=== PATIENT | female | born 1945 | race Caucasian/White ===

== ENCOUNTER 2020-05-21 09:47 | Inpatient (IN) | payer MEDICARE ==
[~2020-05-21] VITALS: Ht 165.1 cm; Wt 38.6 kg
--- NOTE | 2020-05-21 09:47 | NUR ---
PT BIB SELF C/O ANXIETY FOR [address] AVENDAÑO FOR FURTHER EVAL. PT IS AAOX4, NOT IN RESPIRATORY DISTRESS, HOOKED TO STAMP PRESS OPERATOR, KEPT RESTED AND COMFORTABLE. WILL CONTINUE TO MONITOR.
--- NOTE | 2020-05-21 10:00 | NUR ---
URINE SPECIMEN COLLECTED AND SENT TO LAB.
--- NOTE | 2020-05-21 10:05 | NUR ---
SEEN AND EXAMINED BY .
[2020-05-21] MEDS ORDERED: LORAZEPAM INJ 2 MG/ML VIAL ONE (10:07)
[2020-05-21] MEDS ORDERED: AMLO5TAB9 PO (10:16)
[2020-05-21] MEDS ORDERED: OLAN5TAB3 PO (10:16)
[2020-05-21] MEDS ORDERED: TRAZ-257 PO (10:16)
[2020-05-21] MEDS ORDERED: LEVO112T7 PO (10:16)
[2020-05-21] MEDS ORDERED: VENL75TA4 PO (10:16)
[2020-05-21] MEDS ORDERED: TRAM50TA2 PO (10:16)
[2020-05-21] MEDS ORDERED: MIRT15TA7 PO (10:16)
[2020-05-21] MEDS ORDERED: BENA20TA9 PO (10:16)
[2020-05-21] MEDS ORDERED: PHEN100C12 PO (10:16)
--- NOTE | 2020-05-21 10:20 | NUR ---
IV LINE ESTABLISHED BLOOD DRAWN AND SENT TO LAB.
--- NOTE | 2020-05-21 10:22 | NUR ---
SALES AND MARKETING DIRECTOR AT BEDSIDE FOR XRAY.
[2020-05-21 10:24] LABS: BASOPHILS # (AUTO) 0.1 /CMM (0.0-0.2); EOSINOPHILS % (AUTO) 0.3 % (0.0-6.0); HEMATOCRIT 50 % (33-45); HEMOGLOBIN 16.6 g/dL (11.5-14.8); LYMPHOCYTES # (AUTO) 1.3 /CMM (0.8-4.8); MEAN CORPUSCULAR HGB CONC 34 g/dl (31.0-36.0); MEAN CORPUSCULAR VOLUME 98 fL (82-100); MONOCYTES # (AUTO) 0.6 /CMM (0.1-1.30); MONOCYTES % (AUTO) 7.6 % (2.0-12.0); NEUTROPHILS # (AUTO) 5.3 /CMM (1.8-8.9); NEUTROPHILS % (AUTO) 73.1 % (43.0-81.0); PLATELET COUNT (AUTO) 307 /CMM (150-450); RED BLOOD CELL COUNT(AUTO) 5.04 MIL/uL (4.0-5.2); WHITE BLOOD COUNT (AUTO) 7.3 K/uL (4.3-11.0)
[2020-05-21] MEDS ORDERED: LORAZEPAM INJ 2 MG/ML VIAL IV ONE (10:30)
[2020-05-21] MEDS ORDERED: IV NS 0.9% 500 ML BAG IV ONE (10:30)
[2020-05-21 10:31] LABS: CALCIUM, SERUM 8.9 mg/dL (8.5-10.1); CARBON DIOXIDE 30 mmol/L (21-32); CHLORIDE 101 mmol/L (98-107); GLUCOSE 131 mg/dL (74-106); POTASSIUM 3.2 mmol/L (3.5-5.1); SODIUM SERUM 140 mmol/L (136-145); UREA NITROGEN, BLOOD 6 mg/dL (7-18)
[2020-05-21 10:44] LABS: ALANINE AMINOTRANSFERASE 23 U/L (12-78); ALBUMIN 4.3 g/dL (3.4-5.0); ALKALINE PHOSPHATASE 91 U/L (46-116); ASPARTATE AMINOTRANSFERASE 13 U/L (15-37); B-TYPE NATRIURETIC PEPTIDE 286 PG/ML (0-125); BILIRUBIN,DIRECT 0.1 mg/dL (0.0-0.2); BILIRUBIN,TOTAL 0.3 mg/dL (0.2-1.0); TOTAL PROTEIN, SERUM 7.7 g/dL (6.4-8.2)
[2020-05-21 10:50] LABS: THYROID STIMULATING HORMONE 3.519 uIU/mL (0.358-3.74)
--- NOTE | 2020-05-21 10:56 | NUR ---
MOVE SHEET SUBMITTED AND CALLED FOR GPS BED.
--- NOTE | 2020-05-21 11:10 | NUR ---
COVID SPECIMEN OBTAINED AND SENT TO LAB
[2020-05-21 12:00] LABS: APPEARANCE,URINE Clear (CLEAR); BILIRUBIN,URINE Negative (NEGATIVE); BLOOD, URINE Trace-lysed Ery/uL (NEGATIVE); COLOR,URINE Yellow (YELLOW); KETONES,URINE Negative (NEGATIVE); LEUKOCYTE ESTERASE ,URINE Negative (NEGATIVE); NITRITE, URINE Negative (NEGATIVE); PH,URINE 6.5 (5.0-8.0); PROTEIN,URINE Negative (NEGATIVE); UGLUCOSE Negative (NEGATIVE); UROBILINOGEN,URINE 0.2 EU/dL (0.2)
[2020-05-21 12:20] LABS: BACTERIA,URINE None seen /HPF (None Seen); SQUAMOUS EPITHELIAL CELL,UR Few /HPF (None Seen); WBC,URINE 0-2 /HPF (0-3)
--- NOTE | 2020-05-21 12:30 | NUR ---
ANA NORRIS DNP AT BEDSIDE FOR EVAL.
[2020-05-21] MEDS ORDERED: POTASSIUM CHLORIDE 20 MEQ TAB.PRT.SR PO ONE ×2 (12:59→13:00)
--- NOTE | 2020-05-21 14:09 | NUR ---
[facility] BED 215-1
--- NOTE | 2020-05-21 14:20 | NUR ---
REPORT GIVEN TO CAROLINE TORRES FOR JYOTI.
--- NOTE | 2020-05-21 14:50 | NUR ---
EMAIL OPERATIONS MANAGER NOTE: PATIENT IS A 74 YEAR OLD FEMALE BROUGHT INTO THE HOSPITAL INDEPENDENTLY . PT ADMITTED ON A VOLUNTARY BASIS FROM HOME. PATIENT ADMITTED DUE TO INCREASED ANXIETY OVER THE PAST 3 MONTHS CAUSING PT TO BE UNABLE TO PERFORM BASIC ADLS AND ADEQUATE PO INTAKE. PT WITH DECREASED APPETITE AND WEIGHT LOSS OF 13 POUNDS IN 2 MONTHS. PT HAS A HISTORY OF ANXIETY, DEPRESSION, HTN AND COPD. PT STATES SHE HAS BEEN COMPLIANT WITH HER MEDICATIONS AND SWITCHED FROM XANAX TO ATIVAN AFTER 5 YEARS DUE TO XANAX "NOT WORKING ANYMORE" . PT DENIES CURRENT SI/HI. DENIES HISTORY OF SUICIDALITY. UPON FACE TO FACE, PT A+OX3, ABLE TO MAKE NEEDS KNOWN. PT AMBULATORY WITH STEADY GAIT. INDEPENDENT WITH ADLS AND INTAKE. PT RESPONDS ADEQUATELY TO QUESTIONS AND EDUCATION. SPEECH IS CLEAR. SHORT ATTENTION SPAN DUE TO ANXIETY. PT IS DISHEVELED AND UNKEPT. PT DENIES AH/VH. PT ORIENTED TO THE UNIT AND PATIENT'S RIGHT AND GUIDE TO PRESCRIPTIONS GIVEN. PT IS A FULL CODE WITH STABLE VITAL SIGNS. NKA.
[2020-05-21] MEDS ORDERED: MAG HYDROX/AL HYDROX/SIMETH 30 ML UDC PO PRN (15:30)
[2020-05-21] MEDS ORDERED: MAGNESIUM HYDROXIDE 30 ML UDC PO PRN (15:30)
[2020-05-21] MEDS ORDERED: BLOOD SUGAR DIAGNOSTIC 1 EACH STRIP IN ONE (15:30)
[2020-05-21] MEDS ORDERED: TEMAZEPAM 7.5 MG CAPSULE PO PRN (15:30)
[2020-05-21 16:00] VITALS: BP 158/86
[2020-05-21] MEDS: LORAZEPAM 0.5 MG TABLET PO SCH (17:31)
[2020-05-21 19:47] VITALS: BP 140/77
--- NOTE | 2020-05-21 20:10 | NUR ---
GPS-RN NOTE: SPOKE WITH DR. LATIF NOTIFIED OF MEDICATION RECONCILIATION NEEDS TO BE DONE.
[2020-05-21] MEDS: VENLAFAXINE 37.5 MG TABLET PO SCH (20:51)
[2020-05-21] MEDS: MIRTAZAPINE 15 MG TABLET PO SCH (21:17)
[2020-05-21] MEDS: TRAZODONE 50 MG TABLET PO SCH (21:17)
[2020-05-21] MEDS: OLANZAPINE 10 MG TABLET PO SCH (21:18)
[2020-05-22 08:00] VITALS: BP 142/72
[2020-05-22] MEDS: VENLAFAXINE 37.5 MG TABLET PO SCH ×2 (08:26→16:29)
[2020-05-22] MEDS: LORAZEPAM 0.5 MG TABLET PO SCH ×3 (08:27→16:29)
[2020-05-22] MEDS: Z GUARD REMEDY 2 OZ OINT TP SCH ×3 (08:36→16:31)
[2020-05-22 08:40] LABS: ALBUMIN 3.4 g/dL (3.4-5.0); BILIRUBIN,TOTAL 0.4 mg/dL (0.2-1.0); CALCIUM, SERUM 8.3 mg/dL (8.5-10.1); CREATININE 0.9 mg/dL (0.6-1.3); POTASSIUM 4.4 mmol/L (3.5-5.1); TOTAL PROTEIN, SERUM 6.2 g/dL (6.4-8.2)
[2020-05-22 09:19] LABS: PHENYTOIN (DILANTIN) 1.2 ug/ml (10.0-20.0)
[2020-05-22] MEDS: LEVOTHYROXINE SODIUM 112 MCG TABLET PO SCH (09:56)
[2020-05-22] MEDS: BENAZEPRIL HCL 20 MG TABLET PO SCH ×2 (09:56→16:29)
[2020-05-22] MEDS: PHENYTOIN EXTENDED RELEASE 100 MG CAPSULE PO SCH ×2 (09:56→16:29)
[2020-05-22] MEDS: AMLODIPINE BESYLATE 5 MG TABLET PO SCH (09:57)
--- NOTE | 2020-05-22 13:55 | NUR ---
INITIAL DISCHARGE PLAN: [place] [id number] [place] [address]. SW will help from a safe and proper discharge in collaboration with .
[2020-05-22] MEDS: TRAMADOL HCL 50 MG TABLET PO PRN (13:59)
--- NOTE | 2020-05-22 15:10 | NUR ---
INDIVIDUAL INTERVENTION: SW encouraged pt to attend group milieu. Pt refused stating, "I'd rather chill in my bed."
[2020-05-22 16:00] VITALS: BP 113/63
[2020-05-22] MEDS: ENSURE ENLIVE 237 ML LIQUID (VANILLA) PO SCH (16:30)
[2020-05-22 19:35] VITALS: BP 120/54
--- NOTE | 2020-05-22 19:56 | NUR ---
GPS RN NOTE: PT TRANSFERRED PT [facility]SFERRED TO [facility], ROOM 120-1, REPORT GIVEN TO ELY VELAZQUEZ @ 1950, PT TRANSFERRED DOWN AT @1955.
--- NOTE | 2020-05-22 20:10 | NUR ---
RN NOTES Received patient from GPS, via wheelchair accompanied by 1 GPS staff. Transferred patient to bed comfortably. Instructed patient on the importance of using call light. On fall and aspiration precautions. Contraband kept on the safe. Kept pt on bed clean, dry and comfortable. Will continue to monitor accordingly.
[2020-05-22] MEDS: TRAZODONE 50 MG TABLET PO SCH (21:01)
[2020-05-22] MEDS: MIRTAZAPINE 15 MG TABLET PO SCH (21:01)
[2020-05-22] MEDS: OLANZAPINE 10 MG TABLET PO SCH (21:02)
--- NOTE | 2020-05-22 22:21 | NUR ---
RN NOTES Pt's belongings inventory updated. Everything accounted for. Pt's cellphone and self rising flour mixer at nursing fish hatchery supervisor's safe per GPS Charge Nurse Saumya.
--- NOTE | 2020-05-23 06:58 | NUR ---
RN CLOSING NOTES Pt asleep on bed. No new complaints made. Pt denies SI. All nursing needs attended, due meds given as ordered. Kept on bed clean, dry and comfortable. On fall precautions. Endorsed.
--- NOTE | 2020-05-23 08:00 | NUR ---
GPS RN OPENING NOTES Received Patient resting in bed. A/O x 3. Denies SI/HI. VS stable with no acute distress. Breathing even and unlabored on room air with no respiratory distress. Denies pain. No signs and symptoms of pain. No IV access. MD aware. Safety precautions in place. Bed locked and set to lowest position with side rails x 2 up. All needs rendered at this time. Call light within reach. Will continue to monitor.
[2020-05-23] MEDS: PHENYTOIN EXTENDED RELEASE 100 MG CAPSULE PO SCH ×2 (08:38→18:14)
[2020-05-23] MEDS: BENAZEPRIL HCL 20 MG TABLET PO SCH ×2 (08:38→18:14)
[2020-05-23] MEDS: LORAZEPAM 0.5 MG TABLET PO SCH ×3 (08:38→18:14)
[2020-05-23] MEDS: LEVOTHYROXINE SODIUM 112 MCG TABLET PO SCH (08:39)
[2020-05-23] MEDS: AMLODIPINE BESYLATE 5 MG TABLET PO SCH (08:39)
[2020-05-23] MEDS: Z GUARD REMEDY 2 OZ OINT TP SCH ×3 (08:42→17:43)
[2020-05-23] MEDS: ENSURE ENLIVE 237 ML LIQUID (VANILLA) PO SCH ×2 (09:18→17:42)
[2020-05-23] MEDS: VENLAFAXINE 37.5 MG TABLET PO SCH ×2 (10:41→18:41)
--- NOTE | 2020-05-23 10:43 | NUR ---
WOUND CARE CONSULT: PT REFUSED SKIN ASSESSMENT BUT STATES SHE HAD PREVIOUSLY RUBBED HER BUTTOCKS AT HOME AFTER SITTING IN HER PATIO. PT IS AMBULATORY AND CONTINENT WITH CURRENT MIC SCORE OF 19. WILL SEE PRN.
--- NOTE | 2020-05-23 18:50 | NUR ---
GPS RN NOTES Returned phone and keys to Patient at this time.
--- NOTE | 2020-05-23 19:20 | NUR ---
rn gps notes received patient in bed awake alert and oriented, x3, respirations even and unlabored with equal rise and fall of chest, denies any pain or discomfort, denies si or hi at this time, oriented to staff and call light and kept within reach safety precautions rendered low bed and locked, bed alarm in place, all needs attended at this time, frequent checks rendered and continued, all needs attended remains comfortable will continue to monitor and attend to needs.
--- NOTE | 2020-05-23 19:53 | NUR ---
GPS RN CLOSING NOTES Patient resting in bed. A/O x 3. Denies SI/HI. VS stable with no acute distress. Breathing even and unlabored on room air with no respiratory distress. Denies pain. No signs and symptoms of pain. No IV access. MD aware. Safety precautions in place. Bed locked and set to lowest position with side rails x 2 up. All needs rendered at this time. Call light within reach. Will endorse plan of care to oncoming shift.
[2020-05-23 20:00] VITALS: BP 110/58
[2020-05-23] MEDS: TRAZODONE 50 MG TABLET PO SCH (21:09)
[2020-05-23] MEDS: MIRTAZAPINE 15 MG TABLET PO SCH (21:10)
[2020-05-23] MEDS: OLANZAPINE 10 MG TABLET PO SCH (21:10)
[2020-05-24 04:00] VITALS: BP 116/55
--- NOTE | 2020-05-24 06:19 | NUR ---
rn gps closing notes patient in bed sleeping easily arousable, alert and oriented x3, respirations even and unlabored with equal rise and fall of chest, denies any pain or discomfort, denies si or hi at this time, call light kept within reach safety precautions rendered low bed and locked, bed alarm in place, all needs attended at this time, frequent checks rendered and continued throughout shift, med complaint, slept well, all needs attended remains comfortable will continue to monitor and attend to needs and endorse to next shift.
--- NOTE | 2020-05-24 07:30 | NUR ---
REPORT RECEIVED FROM CAROLINE NUNES
[2020-05-24] MEDS: BENAZEPRIL HCL 20 MG TABLET PO SCH ×2 (08:18→16:35)
[2020-05-24] MEDS: LORAZEPAM 0.5 MG TABLET PO SCH ×3 (08:19→16:35)
[2020-05-24] MEDS: LEVOTHYROXINE SODIUM 112 MCG TABLET PO SCH (08:19)
[2020-05-24] MEDS: PHENYTOIN EXTENDED RELEASE 100 MG CAPSULE PO SCH ×2 (08:19→16:35)
[2020-05-24] MEDS: AMLODIPINE BESYLATE 5 MG TABLET PO SCH (08:19)
[2020-05-24] MEDS: VENLAFAXINE 37.5 MG TABLET PO SCH ×2 (08:19→16:34)
[2020-05-24] MEDS: Z GUARD REMEDY 2 OZ OINT TP SCH ×3 (08:26→16:42)
[2020-05-24] MEDS: ENSURE ENLIVE 237 ML LIQUID (VANILLA) PO SCH ×2 (08:26→16:36)
--- NOTE | 2020-05-24 10:15 | NUR ---
RN NOTES RECEIVED PATIENT VIA WHEELCHAIR ACCOMPANIED BY CAROLINE MORA, NO SIGNS OF DISTRESS NOTED AT THIS TIME, REPORT RECEIVED FROM CAROLINE MORA BEDSIDE. WILL CONTINUE TO MONITOR.
--- NOTE | 2020-05-24 10:17 | NUR ---
PATIENT TRANSFERRED TO 219 ROOM
[2020-05-24 16:00] VITALS: BP 141/89
[2020-05-24] MEDS: ACETAMINOPHEN 325 MG TABLET PO PRN (16:59)
[2020-05-24 20:08] VITALS: BP 105/55
[2020-05-24] MEDS: TRAZODONE 50 MG TABLET PO SCH (21:26)
[2020-05-24] MEDS: MIRTAZAPINE 15 MG TABLET PO SCH (21:27)
[2020-05-24] MEDS: OLANZAPINE 10 MG TABLET PO SCH (21:28)
[2020-05-25 08:00] VITALS: BP 122/56
[2020-05-25] MEDS: LORAZEPAM 0.5 MG TABLET PO SCH ×3 (08:08→16:34)
[2020-05-25] MEDS: PHENYTOIN EXTENDED RELEASE 100 MG CAPSULE PO SCH ×2 (08:08→16:34)
[2020-05-25] MEDS: VENLAFAXINE 37.5 MG TABLET PO SCH ×2 (08:08→16:34)
[2020-05-25] MEDS: BENAZEPRIL HCL 20 MG TABLET PO SCH ×2 (08:09→16:34)
[2020-05-25] MEDS: AMLODIPINE BESYLATE 5 MG TABLET PO SCH (08:09)
[2020-05-25] MEDS: Z GUARD REMEDY 2 OZ OINT TP SCH ×3 (08:10→16:21)
[2020-05-25] MEDS: ENSURE ENLIVE 237 ML LIQUID (VANILLA) PO SCH ×2 (08:10→16:21)
[2020-05-25] MEDS: LEVOTHYROXINE SODIUM 112 MCG TABLET PO SCH (08:10)
--- NOTE | 2020-05-25 08:16 | NUR ---
GPS RN NOTES PATIENT WITH BORDERLINE DIASTOLIC BP 122/56. ONE OUT OF TWO BP MEDS GIVEN.
[2020-05-25] MEDS: ACETAMINOPHEN 325 MG TABLET PO PRN (09:53)
--- NOTE | 2020-05-25 13:35 | NUR ---
INDIVIDUAL INTERVENTION: SW met with pt to discuss her current symptoms of anxiety. Pt stated she was feeling much better today and was observed walking around the unit. Pt stated she has more energy today and states she feels the medication is helping. SW explored triggers and alternative ways of coping.
[2020-05-25] MEDS: TRAMADOL HCL 50 MG TABLET PO PRN (15:17)
[2020-05-25 16:00] VITALS: BP 127/76
--- NOTE | 2020-05-25 19:05 | NUR ---
GPS RN OPENING NOTES: RECEIVED PATIENT AWAKE AND IN BED,SITTING. NO S/S OF DISTRESS NOTED. NO COMPLAIN OF PAIN. PATIENT'S BREATHING IS UNLABORED. PATIENT IS ALERT AND ORIENTED X2.PATIENT DENIES SUICIDE IDEATIONS AND HOMICIDAL IDEATIONS AT THIS TIME. BED IN LOCKED AND LOW POSITION. PATIENT EDUCATED ON THE USE OF THE CALL DAILEY. BED SIDERAILS UP X2 FOR SAFETY. WILL CONTINUE TO MONITOR.
[2020-05-25 20:00] VITALS: BP 132/67
[2020-05-25 20:07] VITALS: BP 132/76
[2020-05-25] MEDS: TRAZODONE 50 MG TABLET PO SCH (21:10)
[2020-05-25] MEDS: OLANZAPINE 10 MG TABLET PO SCH (21:11)
[2020-05-25] MEDS: MIRTAZAPINE 15 MG TABLET PO SCH (21:11)
--- NOTE | 2020-05-25 21:17 | NUR ---
AMBULATORY WITH STEADY GAIT.
--- NOTE | 2020-05-25 21:17 | NUR ---
PATIENT COMPLIANT WITH MEDS.
--- NOTE | 2020-05-25 21:21 | NUR ---
PATIENT'S SACRAL AREA ASSESSED FOR REDNESS, NO REDNESS NOTED.
--- NOTE | 2020-05-26 06:19 | NUR ---
CLOSING NOTES: PATIENT IS AWAKE, JUST WENT TO THE BATHROOM,VOIDED. NO S/S OF DISTRESS NOTED. NO COMPLAIN OF PAIN AT THIS TIME. BED IN LOWEST AND LOCKED POSITION. PATIENT IS CALM AND HAPPY THIS MORNING.
[2020-05-26 08:00] VITALS: BP 135/74
[2020-05-26] MEDS: LORAZEPAM 0.5 MG TABLET PO SCH ×3 (08:03→17:30)
[2020-05-26] MEDS: PHENYTOIN EXTENDED RELEASE 100 MG CAPSULE PO SCH ×2 (08:03→17:30)
[2020-05-26] MEDS: VENLAFAXINE 37.5 MG TABLET PO SCH ×2 (08:03→17:30)
[2020-05-26] MEDS: LEVOTHYROXINE SODIUM 112 MCG TABLET PO SCH (08:03)
[2020-05-26] MEDS: AMLODIPINE BESYLATE 5 MG TABLET PO SCH (08:04)
[2020-05-26] MEDS: BENAZEPRIL HCL 20 MG TABLET PO SCH ×2 (08:04→17:31)
[2020-05-26] MEDS: ENSURE ENLIVE 237 ML LIQUID (VANILLA) PO SCH ×2 (08:05→17:24)
[2020-05-26] MEDS: Z GUARD REMEDY 2 OZ OINT TP SCH ×3 (08:07→17:24)
[2020-05-26] MEDS: TRAMADOL HCL 50 MG TABLET PO PRN (09:35)
[2020-05-26] MEDS: ACETAMINOPHEN 325 MG TABLET PO PRN (14:57)
[2020-05-26 16:00] VITALS: BP 127/62
[2020-05-26 20:10] VITALS: BP 134/61
[2020-05-26] MEDS: OLANZAPINE 10 MG TABLET PO SCH (22:14)
[2020-05-26] MEDS: MIRTAZAPINE 15 MG TABLET PO SCH (22:15)
[2020-05-26] MEDS: TRAZODONE 50 MG TABLET PO SCH (22:24)
--- NOTE | 2020-05-27 06:32 | NUR ---
GPS RN CLOSING NOTES: PT AWAKE, ALERT AND ORIENTED 3X. CALM AND COOPERATIVE, MEDICATION COMPLIANT. SLEPT FOR 8 HR THIS SHIFT. NO S/S OF DISTRESS. RESPIRATION EVEN AND UNLABORED WITH EQUAL RISE AND FALL OF THE SHIFT ON ROOM AIR. ALL PT NEEDS MET ANTICIPATED. WILL CONTINUE TO MONITOR AND ENDORSE TO AM SHIFT.
[2020-05-27] MEDS: PHENYTOIN EXTENDED RELEASE 100 MG CAPSULE PO SCH ×2 (07:55→17:09)
[2020-05-27] MEDS: LEVOTHYROXINE SODIUM 112 MCG TABLET PO SCH (07:55)
[2020-05-27] MEDS: LORAZEPAM 0.5 MG TABLET PO SCH ×3 (07:56→17:10)
[2020-05-27] MEDS: ENSURE ENLIVE 237 ML LIQUID (VANILLA) PO SCH ×2 (07:56→17:05)
[2020-05-27] MEDS: VENLAFAXINE 37.5 MG TABLET PO SCH ×2 (07:56→17:09)
[2020-05-27] MEDS: BENAZEPRIL HCL 20 MG TABLET PO SCH ×2 (07:57→17:09)
[2020-05-27] MEDS: AMLODIPINE BESYLATE 5 MG TABLET PO SCH (07:58)
[2020-05-27] MEDS: Z GUARD REMEDY 2 OZ OINT TP SCH ×3 (07:59→17:05)
[2020-05-27 08:00] VITALS: BP 145/74
[2020-05-27] MEDS: TRAMADOL HCL 50 MG TABLET PO PRN ×2 (10:28→16:52)
[2020-05-27] MEDS: ACETAMINOPHEN 325 MG TABLET PO PRN (13:21)
[2020-05-27 16:00] VITALS: BP 128/71
[2020-05-27 20:39] VITALS: BP 131/66
[2020-05-27] MEDS: TRAZODONE 50 MG TABLET PO SCH (21:19)
[2020-05-27] MEDS: OLANZAPINE 10 MG TABLET PO SCH (21:19)
[2020-05-27] MEDS: MIRTAZAPINE 15 MG TABLET PO SCH (21:19)
[2020-05-28] MEDS: TRAMADOL HCL 50 MG TABLET PO PRN ×2 (07:49→17:01)
[2020-05-28 08:00] VITALS: BP 138/70
[2020-05-28] MEDS: LORAZEPAM 0.5 MG TABLET PO SCH ×3 (08:20→16:36)
[2020-05-28] MEDS: LEVOTHYROXINE SODIUM 112 MCG TABLET PO SCH (08:20)
[2020-05-28] MEDS: VENLAFAXINE 37.5 MG TABLET PO SCH ×2 (08:20→16:36)
[2020-05-28] MEDS: PHENYTOIN EXTENDED RELEASE 100 MG CAPSULE PO SCH ×2 (08:20→16:36)
[2020-05-28] MEDS: Z GUARD REMEDY 2 OZ OINT TP SCH ×3 (08:21→16:37)
[2020-05-28] MEDS: ENSURE ENLIVE 237 ML LIQUID (VANILLA) PO SCH ×2 (08:21→16:37)
[2020-05-28] MEDS: BENAZEPRIL HCL 20 MG TABLET PO SCH ×2 (08:21→16:37)
[2020-05-28] MEDS: AMLODIPINE BESYLATE 5 MG TABLET PO SCH (08:21)
--- NOTE | 2020-05-28 09:00 | NUR ---
RN NOTE- PT W ANXIETY THOUGH DIMINISHED W ROUTINE ATIVAN ADMINISTRATION, STATED SI THOUGHTS PREVIOUSLY THOUGH NONE AT PRESENT. DENIES AH VH PO INTAKE FAIR VISIBLE ON UNIT SOME INTERACTION
[2020-05-28] MEDS: ACETAMINOPHEN 325 MG TABLET PO PRN (14:08)
--- NOTE | 2020-05-28 14:08 | NUR ---
RN NOTE- PT C/O BACK AND NECK PAIN. TYLENOL 650 MG GIVEN
[2020-05-28 16:00] VITALS: BP 116/63
[2020-05-28 19:45] VITALS: BP 104/63
[2020-05-28] MEDS: TRAZODONE 50 MG TABLET PO SCH (21:17)
[2020-05-28] MEDS: OLANZAPINE 10 MG TABLET PO SCH (21:17)
[2020-05-28] MEDS: MIRTAZAPINE 15 MG TABLET PO SCH (21:18)
[2020-05-29 08:00] VITALS: BP 142/70
[2020-05-29] MEDS: VENLAFAXINE 37.5 MG TABLET PO SCH ×2 (08:13→16:15)
[2020-05-29] MEDS: BENAZEPRIL HCL 20 MG TABLET PO SCH ×2 (08:14→16:20)
[2020-05-29] MEDS: LORAZEPAM 0.5 MG TABLET PO SCH ×3 (08:14→16:15)
[2020-05-29] MEDS: LEVOTHYROXINE SODIUM 112 MCG TABLET PO SCH (08:14)
[2020-05-29] MEDS: AMLODIPINE BESYLATE 5 MG TABLET PO SCH (08:14)
[2020-05-29] MEDS: PHENYTOIN EXTENDED RELEASE 100 MG CAPSULE PO SCH ×2 (08:14→16:15)
[2020-05-29] MEDS: Z GUARD REMEDY 2 OZ OINT TP SCH ×3 (08:15→17:31)
[2020-05-29] MEDS: ENSURE ENLIVE 237 ML LIQUID (VANILLA) PO SCH ×2 (08:15→17:20)
[2020-05-29] MEDS: TRAMADOL HCL 50 MG TABLET PO PRN ×2 (08:35→17:11)
--- NOTE | 2020-05-29 09:00 | NUR ---
RN NOTE- DECREASED ANXIETY MORE INTERACTIVE ENGAGES IN CONVERSATION DENIES SI HI AH VH PO INTAKE REMAINS FAIR NEEDS ATTENDED A BIT LESS WITHDRAWN THAN PREVIOUS DAYS
[2020-05-29 16:00] VITALS: BP 120/60
--- NOTE | 2020-05-29 17:11 | NUR ---
RN NOTE: PAIN PT C/O 5/10 LOWER BACK PAIN. REQUESTING TRAMADOL. TRAMADOL PO PRN ADMINISTERED.
[2020-05-29 19:36] VITALS: BP 110/71
[2020-05-29] MEDS: MIRTAZAPINE 15 MG TABLET PO SCH (21:10)
[2020-05-29] MEDS: OLANZAPINE 10 MG TABLET PO SCH (21:10)
[2020-05-29] MEDS: TRAZODONE 50 MG TABLET PO SCH (21:10)
[2020-05-30 08:00] VITALS: BP 135/77
[2020-05-30] MEDS: LORAZEPAM 0.5 MG TABLET PO SCH ×3 (08:38→16:49)
[2020-05-30] MEDS: LEVOTHYROXINE SODIUM 112 MCG TABLET PO SCH (08:38)
[2020-05-30] MEDS: VENLAFAXINE 37.5 MG TABLET PO SCH ×2 (08:38→16:48)
[2020-05-30] MEDS: PHENYTOIN EXTENDED RELEASE 100 MG CAPSULE PO SCH ×2 (08:38→16:48)
[2020-05-30] MEDS: BENAZEPRIL HCL 20 MG TABLET PO SCH ×2 (08:38→16:48)
[2020-05-30] MEDS: TRAMADOL HCL 50 MG TABLET PO PRN ×2 (08:39→17:32)
[2020-05-30] MEDS: ENSURE ENLIVE 237 ML LIQUID (VANILLA) PO SCH ×2 (08:39→16:49)
[2020-05-30] MEDS: AMLODIPINE BESYLATE 5 MG TABLET PO SCH (08:39)
[2020-05-30] MEDS: Z GUARD REMEDY 2 OZ OINT TP SCH ×3 (09:43→16:49)
[2020-05-30 16:00] VITALS: BP 130/61
--- NOTE | 2020-05-30 16:10 | NUR ---
GPS RN NOTE RECEIVED PT IN HALLWAY USING PHONE, NO DISTRESS NOTED, PT DENIED PAIN AT THIS TIME, PT WAS STATING HOW SHE WAS FEELING SLIGHTLY ANXIOUS, WOULD LIKE HER SCHEDULED ATIVAN WHEN READY, PT WAS STILL BLUNT, FLAT, DEPRESSED, ISOLATIVE. ALL NEEDS MET AT THIS TIME WILL CONTINUE TO MONITOR Q15MIN FOR SAFETY AND BEHAVIOR.
--- NOTE | 2020-05-30 17:40 | NUR ---
GPS RN NOTE: PAIN PT WAS C.O OF 05/03 NECK AND BACK PAIN, REQUESTED TRAMADOL, ADMIN TRAMADOL PRN @ 1805 WILL REASSESS AND CONTINUE TO MONITOR Q15MIN FOR SAFETY AND BEHAVIOR
[2020-05-30 20:15] VITALS: BP 129/75
[2020-05-30] MEDS: TRAZODONE 50 MG TABLET PO SCH (21:18)
[2020-05-30] MEDS: MIRTAZAPINE 15 MG TABLET PO SCH (21:19)
[2020-05-30] MEDS: OLANZAPINE 10 MG TABLET PO SCH (21:20)
[2020-05-31 08:00] VITALS: BP 141/71
--- NOTE | 2020-05-31 08:37 | NUR ---
DISCHARGE NOTE: Patient will be discharged back home [address] [facility] [address] ([phone]). Patient will be utilizing [employer] transportation today at 12:00PM. Patient is alert and oriented times 4 and is aware and agreeable with discharge plan. Patient presents with euthymic mood and congruent affect. Patient denies suicidal or homicidal ideation. Patient will be following up with her psychiatrist Dr. Lopez at [facility] at [address] [address] ([phone]; [phone]) and has a telehealth follow up within one week of discharge. Patient will be following up with her primary care physician Dr. Medrano [address] [facility] [address], [place] [address] ([phone]) and has a follow up appointment scheduled on June 04, 2020 at 10:30AM.
[2020-05-31] MEDS: LORAZEPAM 0.5 MG TABLET PO SCH (08:47)
[2020-05-31 08:48] VITALS: BP 141/71
[2020-05-31] MEDS: BENAZEPRIL HCL 20 MG TABLET PO SCH (08:48)
[2020-05-31] MEDS: PHENYTOIN EXTENDED RELEASE 100 MG CAPSULE PO SCH (08:48)
[2020-05-31] MEDS: VENLAFAXINE 37.5 MG TABLET PO SCH (08:48)
[2020-05-31] MEDS: LEVOTHYROXINE SODIUM 112 MCG TABLET PO SCH (08:48)
[2020-05-31] MEDS: AMLODIPINE BESYLATE 5 MG TABLET PO SCH (08:48)
[2020-05-31] MEDS: ENSURE ENLIVE 237 ML LIQUID (VANILLA) PO SCH (08:51)
[2020-05-31] MEDS: Z GUARD REMEDY 2 OZ OINT TP SCH (08:52)
--- NOTE | 2020-05-31 08:52 | NUR ---
Dr. Lopez gave an order to D/C pt to Home and to follow up with psych and medical doctors. Per Psychiatrist meds were called in to the pharmacy.
[2020-05-31] MEDS: TRAMADOL HCL 50 MG TABLET PO PRN (10:05)
--- NOTE | 2020-05-31 12:00 | NUR ---
GPS/RN-DISCHARGE NOTES RECEIVED DISCHARGE ORDER FROM DR. AVENDAÑO AND THAT HE WILL FAXED PATIENT RX TO THE PHARMACY THAT PATIENT PROVIDED. NORA NORRIS ALSO MADE AWARE OF PATIENT DISCHARGE. PATIENT STATED" I DON'T NEED ANY RX FROM MY MEDICAL DOCTOR BECAUSE I STILL HAVE MEDICATIONS AT HOME".PATIENT DID NOT VERBALIZE SI/HI,DENIES VISUAL/AUDITORY HALLUCINATIONS AT THE TIME OF DISCHARGE. PATIENT LEFT THE UNIT ALERT ORIENTED X4 AMBULATORY STEADY GAIT. PATIENT STRONGLY REFUSED FULL BODY ASSESSMENT PRIOR TO DISCHARGE. STATED" THEY TOOK PHOTOS OF ME TWICE AND NO MORE ,I DON'T HAVE ANY PROBLEM WITH MY SKIN". INSTRUCTED PATIENT TO CALL 911 OR GO TO THE NEAREST EMERGENCY FACILITY IN CASE OF EMERGENCY AND FOLLOW UP WITH PSYCHIATRIST AND FINISHER HOT STRIP IN A WEEK OR NEEDED. PARTS ADMINISTRATOR CALLED PATIENT'S SON ANGUS @ [phone] AND MADE A AWARE OF PATIENT DISCHARGE.PATIENT WAS ASSISTED BY ONE SUPERVISOR ROLLER PRINTING STAFF IN THE LOBBY FOR SAFETY,ALL BELONGINGS WAS GIVEN BACK TO THE PATIENT INCLUDING DISCHARGE INSTRUCTIONS. MASK WAS GIVEN TO THE PATIENT. PATIENT LEFT THE HOSPITAL VIA UBER.
== END 2020-05-31 12:00 | disposition home or self-care (01) | DRG 880 ==
LOC: ER 09:52 → GPS 14:16 → GPSOV1 05-22 20:01 → GPS 05-24 10:05
PROVIDERS: ADMIT Psychiatry & Neurology Psychiatry; ATTEND Nurse Practitioner Acute Care
DX: F41.9 Anxiety disorder, unspecified (principal); E43 Unspecified severe protein-calorie malnutrition; F32.2 Major depressive disorder, single episode, severe without psychotic features; R64 Cachexia; Z68.1 Body mass index [BMI] 19.9 or less, adult; G40.909 Epilepsy, unspecified, not intractable, without status epilepticus; E87.6 Hypokalemia; J44.9 Chronic obstructive pulmonary disease, unspecified; I10 Essential (primary) hypertension; E88.09 Other disorders of plasma-protein metabolism, not elsewhere classified; G47.00 Insomnia, unspecified; F41.0 Panic disorder [episodic paroxysmal anxiety]; F17.210 Nicotine dependence, cigarettes, uncomplicated; F12.90 Cannabis use, unspecified, uncomplicated
CPT/HCPCS: 36415; 71045-TC; 80048-TC; 80053-TC; 80061-TC; 80076-TC; 80185-TC; 80305; 81000-TC; 82962-TC; 83880; 84134-TC; 84439-TC; 84443-TC; 84481; 84484-TC; 85025-TC; 85730-TC; 87081-TC; C9803-CS; J2060; J7040; J7050